=== PATIENT | male | born 1995 | race Hispanic/Latino ===

== ENCOUNTER 2022-10-20 14:53 | Emergency (ER) | payer MEDICAID ==
[~2022-10-20] VITALS: Ht 170.2 cm; Wt 122.5 kg
[2022-10-20 15:07] VITALS: BP 172/109; PULSE 111; RESP 20
[2022-10-20] MEDS ORDERED: CIPOTIC OT (16:56)
== END 2022-10-20 17:59 | disposition home or self-care (01) ==
LOC: EDH 14:53
DX: H60.91 Unspecified otitis externa, right ear (principal)